=== PATIENT | male | born 1985 | race Caucasian/White ===

== ENCOUNTER → 2024-03-22 18:14 | Outpatient (BNVA) | payer OTHER, SELFPAY | PROVIDERS: Family Provider General Practice; PCP Family Medicine; Visit Provider Registered Nurse Neonatal Intensive Care | DX: J02.9 Acute pharyngitis, unspecified (principal) | CPT/HCPCS: 87071; 87880 ==

== ENCOUNTER 2024-05-04 10:55 | Oncology outpatient (recurring) (ONCR) | payer OTHER, SELFPAY | END 2024-05-17 23:59 | disposition home or self-care (01) | PROVIDERS: Family Provider General Practice; PCP Family Medicine; Visit Provider Internal Medicine Medical Oncology | DX: J02.9 Acute pharyngitis, unspecified (principal) | CPT/HCPCS: 36415 ==

== ENCOUNTER → 2024-07-10 07:54 | Outpatient (BNVA) | payer OTHER, SELFPAY | PROVIDERS: Family Provider General Practice; PCP Family Medicine; Visit Provider Family Medicine | DX: Z51.81 Encounter for therapeutic drug level monitoring (principal); Z00.00 Encounter for general adult medical examination without abnormal findings; Z13.220 Encounter for screening for lipoid disorders | CPT/HCPCS: 80053; 80061; 85025 ==

== ENCOUNTER 2024-10-05 05:55 | Day surgery (SDC) | payer OTHER, SELFPAY ==
[2024-10-05] VITALS (10 sets, daily range): BP systolic 110–141; BP diastolic 62–98; PULSE 62–85; RESP 14–24; TEMP 36.1–36.3; O2SAT 97–100; BMI 30.1
[2024-10-05] MEDS: sodium chloride 0.9% 1,000 ML 30 ML IV (06:24)
--- NOTE | 2024-10-05 06:50 | P.ANESASSM_ITS ---
Pre-Anesthetic Assessment Height/Weight: Height 1.78 m Weight 95.254 kg Temp Pulse Resp BP Pulse Ox O2 Del Method 97.3 F L 62 18 121/98 98 Room Air 10/05/24 06:04 10/05/24 06:04 10/05/24 06:04 10/05/24 06:04 10/05/24 06:04 10/05/24 06:07 Operation Date: 10/05/24 07:00 Proposed Procedures p Laparoscopic Inguinal Hernia Repair with mesh [id number], K40.90(Bilateral) - Tyler Duran DO Familial anesthetic complications: NOne Was Beta Rosetta taken within 24 hours: N/A Was Clonidine taken within 24 hours: N/A Last intake: Intake Last Liquid Date 10/04/24 Last Liquid Time 20:00 Last Solid Date 10/04/24 Last Solid Time 20:00 Social No alcohol and No tobacco Exam alert, oriented x 3, clear to auscultation bilaterally and regular rate & rhythm Airway Mallampati: Class I Dentition: full Anesthetic Plan ASA status: 1 Anesthesia: General Risk of > 500 ml blood loss (7ml/kg in children): No Medications/Allergies Home Medications Medication Instructions Recorded Confirmed Last Taken Type No Known Home Medications 10/04/24 10/04/24 Unknown History Allergies Allergy/AdvReac Type Severity Reaction Status Date / Time No Known Allergies Allergy Verified 10/05/24 06:02 Current Medications Generic Name Dose Route Start Last Admin Trade Name Freq PRN Reason Stop Dose Admin Sodium Chloride 1,000 mls @ 30 mls/hr 10/05/24 06:00 10/05/24 06:24 Sodium Chloride 0.9% IV 10/06/24 05:59 30 mls/hr .Q24H LOLA Administration PFSH Anesthesia Medical History Family history of BRCA2 gene positive Surgical History H/O wisdom tooth extraction Family History Father Dyslipidemia Grandfather Colon cancer of colon cancer in 50's Grandmother Colon cancer of colon cancer in her 50's Mother Breast cancer Breast cancer x 2 - First at age 37 and second time around age 55. Doing well now. She has the BRCA-2 gene. 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
--- NOTE | 2024-10-05 07:00 | PM.HP ---
Providers/Chief Complaint Primary Care Provider: Raji Rizvi MD Chief Complaint: K40.90 History of Present Illness Jerrod Keyes is a 38 year old male Review of Systems General: Reports: 10 or more systems reviewed and unremarkable except in HPI and below Medications/Allergies Home Medications Medication Instructions Recorded Confirmed Last Taken Type No Known Home Medications 10/04/24 10/04/24 Unknown History Allergies Allergy/AdvReac Type Severity Reaction Status Date / Time No Known Allergies Allergy Verified 10/05/24 06:02 PFSH Acute PFSH: Medical History Family history of BRCA2 gene positive Surgical History H/O wisdom tooth extraction Family History Father Dyslipidemia Grandfather Colon cancer of colon cancer in 50's Grandmother Colon cancer of colon cancer in her 50's Mother Breast cancer Breast cancer x 2 - First at age 37 and second time around age 55. Doing well now. She has the BRCA-2 gene. 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
[2024-10-05] MEDS: ceFAZolin 2,000 mg SDV 2000 MG IVP (07:04)
--- NOTE | 2024-10-05 07:28 | ANES.PROC ---
Anesthesia Procedures Procedure/Date: 10/05/24 Endotracheal intubation Procedure Narrative: A time out was performed. My hands were washed immediately prior to the procedure. I wore a surgical cap, mask with protective eyewear, gown and gloves throughout the procedure. The patient was placed on a air sampling and monitoring including continuous pulse oximetry. Rapid Sequence Intubation was conducted. The patient received Versed, Fentanyl, Lidocane and Propofol for induction and Rocuronium for adequate paralysis. Please see the Anesthesia records for further information on the doses of medication used. Using a Mac 3.5 laryngoscope and a size 7.5 endotracheal tube with stylet, the patient was intubated on the first attempt. The stylet was removed and cuff balloon was inflated. Appropriate endotracheal tube position was confirmed by direct visualization of vocal cord passage, fogging of the tube, CO2 colormetric indicator and symmetric breath sounds. Other Information: Anesthesiologist- Dr. Bradford
[2024-10-05] MEDS: lidocaine-epi 2% PF 1:200,000 20 mL SDV XX (08:07)
--- NOTE | 2024-10-05 08:13 | PM.OP ---
Operative Report Date of procedure: October 05, 2024 Surgeon: Tyler Duran DO Procedure: Pre-op diagnosis: Bilateral inguinal hernias Post-op diagnosis: Bilateral indirect inguinal hernias Procedure done: Laparoscopic (TEPP) repair of right inguinal hernia with mesh Laparoscopic (TEPP) repair of left inguinal hernia with mesh Implants: Left and right extra-large 3D max Bard mesh is Specimens removed/disposition: None Surgeon: Tyler Duran DO Anesthesia: General and Local Estimated blood loss (mL): 5 Complications: None apparent Brief History: This is a very pleasant 38-year-old gentleman who presented my office with bilateral inguinal hernias. Laparoscopic repair with mesh was indicated. The risk and benefits were explained and documented. Procedure: Patient was wheeled into the operative room and placed on the OR table in a supine position. Abdomen was inspected prepped and draped in usual sterile fashion. Time-out was performed and all present were in agreement. A 15 blade scalpel was used to make 1.2 centimeter incision infraumbilically. Combination of sharp and blunt dissection was performed down to the anterior rectus sheath which was opened sharply. The dissecting balloon was then inserted into the space of Retzius and blown up. We put the camera into the port and identified that we were in the correct space. I then placed 2 5 millimeter trocars suprapubically in the midline. I then used endokitners to bluntly dissect in the space of Retzius out laterally. An indirect inguinal hernia was identified on the right. Blunt dissection was performed to dissect down the hernia sac until the vas deferens dove medially. An extra-large 3D max Bard right inguinal mesh was then placed into the space of Retzius. The mesh was unrolled and tacked once medially at the pubic bone. The mesh laid out nicely over the spermatic cord. An indirect inguinal hernia was identified on the left. Blunt dissection was performed to dissect down the hernia sac until the vas deferens dove medially. An extra-large 3D max Bard left inguinal mesh was then placed into the space of Retzius. The mesh was unrolled and tacked once medially at the pubic bone. The mesh laid out nicely over the spermatic cord. Hernia sacs were held underneath the meshes as the insufflation was released. Incisions were closed with 4 O Vicryl in a subcuticular interrupted fashion. Skin glue was applied. Patient tolerated the procedure well.
--- NOTE | 2024-10-05 09:50 | ANE.PACU2 ---
Inpatient post-anesthesia follow up: Airway intact: Yes Vital signs: Temperature 97.2 F Pulse Rate 63 Respiratory Rate 18 Blood Pressure 110/72 Pulse Oximetry 100 Oxygen Delivery Me thod Room Air Oxygen Flow Rate 6 Fraction of Inspir ed Oxygen Hydration adequate: Yes Nausea and vomiting: No Pain level: 1 Mental status: Baseline
== END 2024-10-05 09:51 | disposition home or self-care (01) ==
PROVIDERS: PCP Family Medicine; Visit Provider Surgery
PROC: (CPT 49650; principal; 2024-10-05 07:00)
DX: K40.20 Bilateral inguinal hernia, without obstruction or gangrene, not specified as recurrent (principal)
CPT/HCPCS: 49505; 51702; C1781; J0131; J0690; J1100; J1885; J2250; J2405; J2704; J3010; J3490; J7030